=== PATIENT | male | born 1940 | race Caucasian/White ===

== ENCOUNTER → 2020-11-06 | Outpatient (CLI) | payer MEDICARE, OTHER ==
[~2020-11-06] MED LIST: ALL DAY ALLERGY10 M2 PO; ANTIOXIDANT SO1 EAC1 PO; CALCIUM 600+D31 EACH PO; DELZICOL PO; FLONASE 0.05% N16 GM; FOLIC ACID0.4 MG PO; GELATIN650 MG PO; MAGOX 400400 MG PO; NORVASC 5 MG TAB5 MG PO; Q-VAR PO; SINGULAIR10 MG PO; VIBRAMYCIN100 MG PO; VITAMIN B 12 PO; VITAMIN D-40400 UNIT PO; ZANTAC150 MG PO; ZINC PO
== END ==
LOC: KOH-I 15:49
DX: M79.671 Pain in right foot (principal)
CPT/HCPCS: 73630